=== PATIENT | male | born 1970 | race Caucasian/White ===

== ENCOUNTER 2024-06-25 10:57 | Outpatient (CLI) | payer OTHER, SELFPAY ==
--- NOTE | 2024-06-25 11:27 | XR_ITS ---
WS: [id number] XR lumbar spine 2-3V* [id number] REASON FOR EXAM: BACK PAIN FINDINGS: Mild rotatory levoscoliosis. Normal lordosis. No vertebral body compression or focal lesion. Mild narrowing of the disc spaces at L4 3 to S1 with mild endplate sclerosis and osteophytosis. No significant listhesis. Several small calculi in the right kidney. Multiple small calculi in the left kidney. XR/XR lumbar spine 2-3V* [id number] IMPRESSION: Degenerative spondylosis as above. Nephrolithiasis as above.
== END 2024-06-25 10:58 | disposition home or self-care (01) ==
LOC: RAD 11:04
PROVIDERS: PCP Family Medicine; Visit Provider Student in an Organized Health Care Education/Training Program
DX: Z02.71 Encounter for disability determination (principal); M41.86 Other forms of scoliosis, lumbar region; M47.896 Other spondylosis, lumbar region; R93.7 Abnormal findings on diagnostic imaging of other parts of musculoskeletal system; N20.0 Calculus of kidney
CPT/HCPCS: 72100